=== PATIENT | female | born 2000 | race Caucasian/White ===

== ENCOUNTER 2022-02-13 19:57 | Day surgery (SDC) | payer OTHER ==
[2022-02-13 20:27] VITALS: BMI 31.0
[2022-02-13] MEDS ORDERED: hydrALAZINE 20 MG/ML VIAL SLOW IVP PRN (20:42)
[2022-02-13] MEDS ORDERED: Acetaminophen 500 MG TAB PO SCH (21:15)
[2022-02-13 21:42] LABS: Bilirubin Neg (Negative); Blood, Urine Negative (Negative); Clarity Clear (Clear); Glucose, Urine (Dipstick) Normal (Negative); Ketone, Urine Negative (Negative); Leukocyte Negative (Negative); Nitrite Negative (Negative); Protein, Urine (Dipstick) Negative (Neg-Trace); Urobilinogen Normal mg/dL (Less than 2)
[2022-02-13] MEDS ORDERED: diphenhydrAMINE 50 MG/ML VIAL IVP PRN (21:59)
[2022-02-13] MEDS ORDERED: Metoclopramide HCl 10 MG/2 ML VIAL IVP PRN (21:59)
== END 2022-02-13 23:51 | disposition home or self-care (01) ==
LOC: CSHLD/OP 19:57
PROVIDERS: ATTEND Family Medicine
DX: O26.893 Other specified pregnancy related conditions, third trimester (principal); R10.2 Pelvic and perineal pain; O99.891 Other specified diseases and conditions complicating pregnancy; R51.9 Headache, unspecified; Z3A.35 35 weeks gestation of pregnancy
CPT/HCPCS: 81003; 96374; 99284; J1200; J2765

== ENCOUNTER 2022-03-06 15:01 | Day surgery (SDC) | payer OTHER ==
[2022-03-06 15:33] VITALS: BMI 32.1
[2022-03-06] MEDS ORDERED: Misoprostol 200 MCG TAB PR PRN (15:48)
[2022-03-06] MEDS ORDERED: Methylergonovine 0.2 MG/ML VIAL IM PRN (15:48)
[2022-03-06] MEDS ORDERED: Butorphanol Tartrate 1 MG/ML VIAL SLOW IVP PRN (15:48)
[2022-03-06] MEDS ORDERED: Lidocaine 1% (PF) 30 ML VIAL SC PRN (15:48)
[2022-03-06] MEDS ORDERED: Ondansetron PF 4 MG/2 ML Vial IVP PRN (15:48)
[2022-03-06] MEDS ORDERED: hydrALAZINE 20 MG/ML VIAL SLOW IVP PRN (15:48)
[2022-03-06] MEDS ORDERED: Carboprost 250 MCG/ML AMP IM PRN (15:48)
[2022-03-06] MEDS ORDERED: Diphenoxylate HCl/Atropine Tablet PO PRN (15:48)
[2022-03-06] MEDS ORDERED: Promethazine HCl 25 MG/ML VIAL IM PRN (15:48)
[2022-03-06] MEDS ORDERED: Lactated Ringer's 1,000 ML IV SCH (16:00)
[2022-03-06] MEDS ORDERED: Penicillin G Potassium 5 MILL.UNITS in Sodium Chloride 0.9% 100 ML IVPB SCH (16:00)
[2022-03-06] MEDS ORDERED: NS w/ Oxytocin 30 units 500 ML IV SCH ×2 (16:00)
[2022-03-06 16:36] LABS: SARS-CoV-2 NAA Rapid Test Not Detected (NotDetected)
[2022-03-06 16:42] LABS: Hemoglobin 12.7 g/dL (12.0-15.5); Mean Corpuscular HGB CONC 33.3 g/dL (32.0-36.0); Mean Corpuscular Hemoglobin 31.1 pg (27.0-33.0); Mean Corpuscular Volume 93.2 fl (81.6-98.3); Mean Platelet Volume 12.2 fl (7.4-10.4); Platelet Count 215 10x3/uL (150-450); RBC Distribution Width 13.2 % (11.5-14.5); Red Blood Cell (RBC) Count 4.09 10x6/uL (3.90-5.03); White Blood Cell (WBC) Count 12.2 10x3/uL (3.5-10.5)
[2022-03-06 17:06] LABS: ALT (SGPT) 7 U/L (8-55); AST (SGOT) 12 U/L (5-30); Albumin 3.6 g/dL (3.5-5.0); Alkaline Phosphatase 138 U/L (40-100); Anion Gap 15 mmol/L (10-20); BUN (Urea Nitrogen) 6 mg/dL (8.4-21.0); Bilirubin, Total 0.2 mg/dL (0.2-1.2); Calc. Creatinine Clearance 201 mL/min (70-130); Calcium 9.7 mg/dL (7.8-10.44); Carbon Dioxide 19 mmol/L (22-29); Chloride 108 mmol/L (98-107); Estimated GFR 130; Globulin 2.9 g/dL (2.4-3.5); Glucose 70 mg/dL (70-105); Potassium 4.4 mmol/L (3.5-5.1); Protein, Total 6.5 g/dL (6.0-8.3); Sodium 138 mmol/L (136-145)
[2022-03-06] MEDS ORDERED: Fioricet 325/50/40 mg Tablet PO PRN (17:21)
[2022-03-06 17:23] LABS: Syphilis Antibody Nonreactive (Nonreactive); Syphilis Antibody Index 0.11 S/CO (<1.00 Non-Reactive)
[2022-03-06 17:24] LABS: Hep B Surf Ag Non-Reactive S/CO (NonReactive)
[2022-03-06 17:27] LABS: HBSAg Index 0.18 S/CO (0-0.99)
[2022-03-06] MEDS ORDERED: Penicillin G 2.5 MILL.units 2.5 MILL.UNITS in Premix Bag 1 BAG IVPB SCH (20:00)
== END 2022-03-06 18:05 | disposition home or self-care (01) ==
LOC: CSHLD/OP 15:01
PROVIDERS: ATTEND Family Medicine
DX: O99.891 Other specified diseases and conditions complicating pregnancy (principal); R51.9 Headache, unspecified; O26.893 Other specified pregnancy related conditions, third trimester; R10.12 Left upper quadrant pain; Z3A.38 38 weeks gestation of pregnancy
CPT/HCPCS: 36415; 76819; 80053; 85027; 86780; 86850; 86900; 86901; 87340; 96360; 96361; 99285; U0002

== ENCOUNTER 2022-03-08 12:04 | Day surgery (SDC) | payer OTHER ==
[2022-03-08 12:48] VITALS: BMI 32.1
[2022-03-08] MEDS ORDERED: hydrALAZINE 20 MG/ML VIAL SLOW IVP PRN (12:53)
[2022-03-08] MEDS ORDERED: diphenhydrAMINE 50 MG/ML VIAL IVP PRN (12:55)
[2022-03-08] MEDS: Metoclopramide HCl 10 MG/2 ML VIAL IVP SCH ×2 (13:16→13:44)
[2022-03-08 14:09] LABS: Bilirubin Neg (Negative); Blood, Urine Negative (Negative); Clarity Clear (Clear); Glucose, Urine (Dipstick) Normal (Negative); Ketone, Urine Negative (Negative); Leukocyte 25 (Negative); Nitrite Negative (Negative); Protein, Urine (Dipstick) Negative (Neg-Trace); Urobilinogen Normal mg/dL (Less than 2)
[2022-03-08 14:17] LABS: RBC/HPF None Seen HPF (0-3); Urine Culture Reflex No No
[2022-03-08 14:18] LABS: Bacteria/HPF 3+ HPF (None Seen); WBC/HPF 0-3 HPF (0-3)
== END 2022-03-08 14:45 | disposition home or self-care (01) ==
LOC: CSHLD/OP 12:04
PROVIDERS: ATTEND Family Medicine
DX: O99.353 Diseases of the nervous system complicating pregnancy, third trimester (principal); G43.109 Migraine with aura, not intractable, without status migrainosus; Z3A.38 38 weeks gestation of pregnancy
CPT/HCPCS: 81001; 96365; 99282; J1200; J2765

== ENCOUNTER 2022-03-09 08:54 | Inpatient (IN) | payer OTHER ==
[~2022-03-09 08:54] MED LIST: Bupivacaine/Epinephrine 0.25% 30 ML VIAL ONE
[2022-03-09 09:30] VITALS: BMI 32.4
[2022-03-09] MEDS ORDERED: Diphenoxylate HCl/Atropine Tablet PO PRN (10:35)
[2022-03-09] MEDS ORDERED: Butorphanol Tartrate 1 MG/ML VIAL SLOW IVP PRN (10:35)
[2022-03-09] MEDS ORDERED: Misoprostol 200 MCG TAB PR PRN (10:35)
[2022-03-09] MEDS ORDERED: Lidocaine 1% (PF) 30 ML VIAL SC PRN (10:35)
[2022-03-09] MEDS ORDERED: Methylergonovine 0.2 MG/ML VIAL IM PRN (10:35)
[2022-03-09] MEDS ORDERED: Carboprost 250 MCG/ML AMP IM PRN (10:35)
[2022-03-09] MEDS ORDERED: Promethazine HCl 25 MG/ML VIAL IM PRN (10:35)
[2022-03-09] MEDS ORDERED: Ibuprofen 800 MG TAB PO PRN (10:35)
[2022-03-09] MEDS ORDERED: Acetaminophen 500 MG TAB PO PRN (10:35)
[2022-03-09] MEDS ORDERED: hydrALAZINE 20 MG/ML VIAL SLOW IVP PRN (10:35)
[2022-03-09] MEDS ORDERED: Ondansetron PF 4 MG/2 ML Vial IVP PRN (10:35)
[2022-03-09] MEDS ORDERED: HYDROcodone/Acetaminophen 5/325 mg Tablet PO PRN (10:35)
[2022-03-09] MEDS: Lactated Ringer's 1,000 ML IV SCH (10:45)
[2022-03-09] MEDS ORDERED: NS w/ Oxytocin 30 units 500 ML IV SCH ×2 (10:45)
[2022-03-09 10:48] LABS: Hemoglobin 12.2 g/dL (12.0-15.5); Mean Corpuscular HGB CONC 34.1 g/dL (32.0-36.0); Mean Corpuscular Volume 90.9 fl (81.6-98.3); Mean Platelet Volume 12.9 fl (7.4-10.4); Platelet Count 211 10x3/uL (150-450); RBC Distribution Width 13.2 % (11.5-14.5); Red Blood Cell (RBC) Count 3.94 10x6/uL (3.90-5.03); White Blood Cell (WBC) Count 13.5 10x3/uL (3.5-10.5)
[2022-03-09 11:16] LABS: Hep B Surf Ag Non-Reactive S/CO (NonReactive); Syphilis Antibody Nonreactive (Nonreactive)
[2022-03-09 11:22] LABS: HBSAg Index 0.18 S/CO (0-0.99)
[2022-03-09] MEDS ORDERED: Fentanyl 2 mcg/Bup 0.1% Cadd 100 ML ONE (15:52)
[2022-03-09 19:14] LABS: SARS-CoV-2 NAA Rapid Test Not Detected (NotDetected)
[2022-03-10] MEDS ORDERED: Fentanyl 2 mcg/Bup 0.1% Cadd 100 ML ONE (00:09)
[2022-03-10] MEDS ORDERED: Lidocaine 1% (PF) 30 ML VIAL ONE (02:19)
[2022-03-10] MEDS ORDERED: ePHEDrine Sulfate 50 MG/10 ML VIAL SLOW IVP PRN (02:43)
[2022-03-10] MEDS ORDERED: diphenhydrAMINE 50 MG/ML VIAL IVP PRN (02:43)
[2022-03-10] MEDS ORDERED: Ondansetron PF 4 MG/2 ML Vial IVP PRN ×2 (02:43→05:52)
[2022-03-10] MEDS ORDERED: Acetaminophen 325 MG TAB PO PRN (02:43)
[2022-03-10] MEDS ORDERED: Moisturizing Cream (Eucerin) 113 GM JAR TOP PRN (02:43)
[2022-03-10] MEDS ORDERED: Lactated Ringer's 500 ML IV PRN (02:43)
[2022-03-10] MEDS ORDERED: Promethazine HCl 25 MG/ML VIAL IM PRN ×2 (02:43→05:52)
[2022-03-10] MEDS ORDERED: Naloxone HCl 0.4 mg/ml Vial IVP PRN ×2 (02:43)
[2022-03-10] MEDS ORDERED: Communication Order-Pharmacy FS SCH (02:45)
[2022-03-10] MEDS ORDERED: Fentanyl 2 mcg/Bupivacaine 0.1% Cassette 100 ML EPIDURAL SCH (02:45)
[2022-03-10] MEDS ORDERED: Lanolin Ointment 7 GM TUBE TOP PRN (05:52)
[2022-03-10] MEDS ORDERED: HYDROcodone/Acetaminophen 5/325 mg Tablet PO PRN ×2 (05:52)
[2022-03-10] MEDS ORDERED: diphenhydrAMINE 25 MG CAP PO PRN (05:52)
[2022-03-10] MEDS ORDERED: hydrALAZINE 20 MG/ML VIAL SLOW IVP PRN (05:52)
[2022-03-10] MEDS ORDERED: Bisacodyl 10 MG SUPP PR PRN (05:52)
[2022-03-10] MEDS ORDERED: Benzocaine-Menthol 82.5 ML CAN TOP PRN (05:52)
[2022-03-10] MEDS ORDERED: Boostrix 0.5 ML (Tdap) VIAL IM ONE (05:52)
[2022-03-10] MEDS ORDERED: Milk Of Magnesia 30 ML UDCUP PO PRN (05:52)
[2022-03-10] MEDS ORDERED: NS w/ Oxytocin 30 units 500 ML IV SCH (06:00)
[2022-03-10] MEDS: Ibuprofen 800 MG TAB PO SCH ×3 (07:33→21:06)
[2022-03-10] MEDS: Ferrous Sulfate 325 MG TAB PO SCH ×2 (08:49→16:35)
[2022-03-10] MEDS: Docusate 100 MG CAP PO SCH ×2 (08:49→21:07)
[2022-03-10] MEDS: Prenatal Vitamin 1 TAB PO SCH (08:49)
[2022-03-11] MEDS: Lactated Ringer's 1,000 ML IV SCH (01:35)
[2022-03-11] MEDS: Ibuprofen 800 MG TAB PO SCH ×2 (05:30→13:46)
[2022-03-11] MEDS: Ferrous Sulfate 325 MG TAB PO SCH (08:33)
[2022-03-11] MEDS: Prenatal Vitamin 1 TAB PO SCH (08:34)
[2022-03-11] MEDS: Docusate 100 MG CAP PO SCH (08:34)
[2022-03-11 11:45] VITALS: BP 126/71; TEMP 98.1
== END 2022-03-11 16:15 | disposition home or self-care (01) | DRG 807 ==
LOC: CSHLD 08:54 → CSHPP 03-10 06:15
PROVIDERS: ADMIT Family Medicine; ATTEND Family Medicine
PROC: 10E0XZZ Delivery of Products of Conception, External Approach (ICD-10-PCS; principal; 2022-03-10)
PROC: 10907ZC Drainage of Amniotic Fluid, Therapeutic from Products of Conception, Via Natural or Artificial Opening (ICD-10-PCS; 2022-03-10)
PROC: 3E033VJ Introduction of Other Hormone into Peripheral Vein, Percutaneous Approach (ICD-10-PCS; 2022-03-10)
PROC: 0HQ9XZZ Repair Perineum Skin, External Approach (ICD-10-PCS; 2022-03-10)
DX: O36.8130 Decreased fetal movements, third trimester, not applicable or unspecified (principal); Z37.0 Single live birth; Z3A.38 38 weeks gestation of pregnancy; Z20.822 Contact with and (suspected) exposure to COVID-19; O99.353 Diseases of the nervous system complicating pregnancy, third trimester; G43.109 Migraine with aura, not intractable, without status migrainosus; O70.0 First degree perineal laceration during delivery
CPT/HCPCS: 51702; 81001; 85027; 86780; 86850; 86900; 86901; 87340; 96365; 99282; J1200; J2590; J2765; J7120; U0002

== ENCOUNTER 2023-05-04 15:29 | Day surgery (SDC) | payer OTHER ==
[2023-05-04 16:02] VITALS: BMI 28.6
[2023-05-04] MEDS ORDERED: hydrALAZINE 20 MG/ML VIAL SLOW IVP PRN (17:37)
== END 2023-05-04 16:48 | disposition home health service (06) ==
LOC: CSHLD/OP 15:29
PROVIDERS: ATTEND Family Medicine
DX: O36.8130 Decreased fetal movements, third trimester, not applicable or unspecified (principal); O47.03 False labor before 37 completed weeks of gestation, third trimester; Z3A.35 35 weeks gestation of pregnancy; Z79.899 Other long term (current) drug therapy

== ENCOUNTER 2023-05-07 10:27 | Day surgery (SDC) | payer OTHER ==
[2023-05-07] MEDS ORDERED: hydrALAZINE 20 MG/ML VIAL SLOW IVP PRN (11:49)
[2023-05-07 12:04] LABS: Bilirubin Neg (Negative); Blood, Urine Negative (Negative); Clarity Clear (Clear); Glucose, Urine (Dipstick) Normal (Negative); Ketone, Urine Negative (Negative); Leukocyte 25 (Negative); Nitrite Negative (Negative); Protein, Urine (Dipstick) Negative (Neg-Trace); Urobilinogen Normal mg/dL (Less than 2)
[2023-05-07 12:26] LABS: CAUTI Indications for Culture Pregnancy; RBC/HPF None Seen HPF (0-3); Squamous Epithelial 0-3 HPF (0-3); WBC/HPF 0-3 HPF (0-3)
[2023-05-07 12:27] LABS: Bacteria/HPF Rare-Few HPF (None Seen)
[2023-05-07 12:28] LABS: Urine Culture Reflex Yes Yes
== END 2023-05-07 13:15 | disposition home or self-care (01) ==
LOC: CSHLD/OP 10:27
PROVIDERS: ATTEND Family Medicine
DX: O47.03 False labor before 37 completed weeks of gestation, third trimester (principal); O26.853 Spotting complicating pregnancy, third trimester; Z3A.35 35 weeks gestation of pregnancy
CPT/HCPCS: 59025; 81001; 87086; 87480; 87510; 87660; 99285

== ENCOUNTER 2023-05-20 09:48 | Inpatient (IN) | payer OTHER ==
[2023-05-20] MEDS ORDERED: Oxytocin 30 units/NS 500 ML 500 ML ONE (11:04)
[2023-05-20] MEDS ORDERED: Ondansetron PF 4 MG/2 ML Vial IVP PRN ×3 (13:00→21:34)
[2023-05-20] MEDS ORDERED: Ibuprofen 800 MG TAB PO PRN (13:00)
[2023-05-20] MEDS ORDERED: Diphenoxylate HCl/Atropine Tablet PO PRN (13:00)
[2023-05-20] MEDS ORDERED: Lidocaine 1% (PF) 30 ML VIAL SC PRN (13:00)
[2023-05-20] MEDS ORDERED: Promethazine HCl 25 MG/ML VIAL IM PRN ×3 (13:00→21:34)
[2023-05-20] MEDS ORDERED: Methylergonovine 0.2 MG/ML VIAL IM PRN (13:00)
[2023-05-20] MEDS ORDERED: Tranexamic Acid 1,000 MG/10 ML VIAL IVP PRN (13:00)
[2023-05-20] MEDS ORDERED: Acetaminophen 500 MG TAB PO PRN (13:00)
[2023-05-20] MEDS ORDERED: fentaNYL 50 mcg/mL 1 mL Vial SLOW IVP PRN (13:00)
[2023-05-20] MEDS ORDERED: Carboprost 250 MCG/ML AMP IM PRN (13:00)
[2023-05-20] MEDS ORDERED: Misoprostol 200 MCG TAB PR PRN (13:00)
[2023-05-20] MEDS ORDERED: hydrALAZINE 20 MG/ML VIAL SLOW IVP PRN ×2 (13:00→21:34)
[2023-05-20] MEDS ORDERED: Oxytocin 30 units/NS 500 ML 500 ML IV SCH ×3 (13:00)
[2023-05-20] MEDS ORDERED: HYDROcodone/Acetaminophen 5/325 mg Tablet PO PRN ×2 (13:00→21:34)
[2023-05-20] MEDS ORDERED: Lactated Ringer's 1,000 ML IV SCH (13:00)
[2023-05-20] MEDS ORDERED: fentaNYL/Ropivacaine Epidural 100 ML ONE (13:03)
[2023-05-20] MEDS ORDERED: Naloxone HCl 0.4 mg/ml Vial IVP PRN ×2 (13:34)
[2023-05-20] MEDS ORDERED: diphenhydrAMINE 50 MG/ML VIAL IVP PRN (13:34)
[2023-05-20] MEDS ORDERED: Lactated Ringer's 500 ML IV PRN (13:34)
[2023-05-20] MEDS ORDERED: ePHEDrine Sulfate 50 MG/10 ML VIAL SLOW IVP PRN (13:34)
[2023-05-20] MEDS ORDERED: Acetaminophen 325 MG TAB PO PRN (13:34)
[2023-05-20] MEDS ORDERED: Moisturizing Cream (Eucerin) 113 GM JAR TOP PRN (13:34)
[2023-05-20 13:36] LABS: Hematocrit 35.9 % (34.9-44.5); Hemoglobin 11.9 g/dL (12.0-15.5); Mean Corpuscular HGB CONC 33.1 g/dL (32.0-36.0); Mean Corpuscular Hemoglobin 31.1 pg (27.0-33.0); Mean Corpuscular Volume 93.7 fl (81.6-98.3); Platelet Count 185 10x3/uL (150-450); RBC Distribution Width 13.4 % (11.5-14.5); Red Blood Cell (RBC) Count 3.83 10x6/uL (3.90-5.03); White Blood Cell (WBC) Count 10.1 10x3/uL (3.5-10.5)
[2023-05-20] MEDS ORDERED: Communication Order-Pharmacy FS SCH (13:45)
[2023-05-20] MEDS ORDERED: fentaNYL 2 mcg/Ropivacaine 0.2% Epidural 100 ML CADD EPIDURAL SCH (13:45)
[2023-05-20 13:47] LABS: HBSAg Index 0.18 S/CO (0-0.99); Hep B Surf Ag - L&D Non-Reactive S/CO (NonReactive)
[2023-05-20 13:48] LABS: Syphilis Antibody Nonreactive (Nonreactive); Syphilis Antibody Index 0.07 S/CO (<1.00 Non-Reactive)
[2023-05-20] MEDS ORDERED: Bupivacaine 0.25% HCL 30 ML VIAL ONE (19:08)
[2023-05-20] MEDS ORDERED: diphenhydrAMINE 25 MG CAP PO PRN (21:34)
[2023-05-20] MEDS ORDERED: Lanolin Ointment 7 GM TUBE TOP PRN (21:34)
[2023-05-20] MEDS ORDERED: Milk Of Magnesia 30 ML UDCUP PO PRN (21:34)
[2023-05-20] MEDS ORDERED: Boostrix 0.5 ML (Tdap) VIAL (>/=7 yrs of age) IM ONE (21:34)
[2023-05-20] MEDS ORDERED: Bisacodyl 10 MG SUPP PR PRN (21:34)
[2023-05-20] MEDS ORDERED: Benzocaine-Menthol 82.5 ML CAN TOP PRN (21:34)
[2023-05-20] MEDS ORDERED: Docusate 100 MG CAP PO SCH (21:45)
[2023-05-20] MEDS: Ibuprofen 800 MG TAB PO SCH (21:55)
[2023-05-21] MEDS: Ibuprofen 800 MG TAB PO SCH ×3 (05:39→21:01)
[2023-05-21] MEDS: Docusate 100 MG CAP PO SCH ×2 (13:56→21:01)
[2023-05-21] MEDS: Prenatal Vitamin 1 TAB PO SCH (13:57)
[2023-05-21] MEDS: Ferrous Sulfate 325 MG TAB PO SCH (13:58)
[2023-05-21 22:14] VITALS: BP 119/62; TEMP 98.1
[2023-05-22] MEDS: Ferrous Sulfate 325 MG TAB PO SCH ×2 (05:21→12:46)
[2023-05-22] MEDS: Prenatal Vitamin 1 TAB PO SCH (12:47)
[2023-05-22] MEDS: Docusate 100 MG CAP PO SCH (12:47)
== END 2023-05-22 11:20 | disposition home or self-care (01) | DRG 807 ==
LOC: CSHLD/OP 09:48 → CSHLD 10:22 → CSHANTE 21:34
PROVIDERS: ADMIT Family Medicine; ATTEND Family Medicine
PROC: 10E0XZZ Delivery of Products of Conception, External Approach (ICD-10-PCS; principal; 2023-05-20)
PROC: 0KQM0ZZ Repair Perineum Muscle, Open Approach (ICD-10-PCS; 2023-05-20)
DX: O42.02 Full-term premature rupture of membranes, onset of labor within 24 hours of rupture (principal); Z37.0 Single live birth; Z3A.37 37 weeks gestation of pregnancy; O70.1 Second degree perineal laceration during delivery
CPT/HCPCS: 51702; 85027; 86780; 86850; 86900; 86901; 87340; 99285; J2590; S0020